=== PATIENT | female | born 1950 | race Caucasian/White ===

== ENCOUNTER 2016-11-22 11:24 | Emergency (ER) | payer MEDICARE, OTHER ==
[~2016-11-22] VITALS: Ht 157.5 cm; Wt 45.9 kg
[2016-11-22 11:29] VITALS: BP 156/94; PULSE 79; TEMP 36.8; O2SAT 97; Ht 157.5 cm; Wt 45.9 kg
[2016-11-22] MEDS ORDERED: ULT/50 PO (11:49)
[2016-11-22] MEDS ORDERED: AMOX500C3 PO (11:49)
--- NOTE | 2016-11-22 11:53 | EMERGENCY ROOM VISIT NOTE ---
ED Visit Note First contact with patient: 11:36 CHIEF COMPLAINT: Toothache HISTORY OF PRESENT ILLNESS: This 66-year-old female patient presented to the emergency department with a progressive toothache for past 2-3 days. The patient believes it is coming from a left lower molar. The pain is now steady and severe and radiates to the face. The patient does not a dentist appointment set up. The patient previously followed with [facility], however she had a bad experience with them and is in the process of establishing with a new dentist. They rate their pain a 7/10 and the ibuprofen and Tylenol they have been taking has not relieved the pain. Denies facial swelling or fever. The patient denies any discharge from the mouth. REVIEW OF SYSTEMS: A 6 system review of systems was completed with positives and pertinent negatives listed in the HPI. ALLERGIES: No known allergies MEDICATIONS: No chronic medications PMH: Otherwise healthy SOCIAL HISTORY: Lives locally PHYSICAL EXAM: Vitals are noted on the nurse's note and reviewed by myself. Vital signs stable. GENERAL: White female, in no acute distress, nondiaphoretic, well-developed well -nourished. Mouth: The left lower first molar #19 tooth is very carious and the gum is swollen and tender around it, without any discharge or signs of an abscess. The remainder of the pharynx and tonsils are without erythema, edema, or exudate. The airway is patent. There is no facial swelling, cervical or submandibular lymphadenopathy. The patient appears uncomfortable and in pain. The patient has overall fair dental hygiene. EARS: External auditory canals clear, tympanic membranes pearly cyr without erythema or effusion bilaterally. HEART: Regular rate and rhythm without murmur gallop or rub LUNG: Clear to auscultation bilateral ED COURSE: Physical exam and history were performed. Nursing notes and EMR were reviewed. The patient appears to have dental pain for the past few days. The patient has never had a previous ER visit to this facility before. Review of the [employer] drug monitoring website shows no narcotic fills in the past year. The patient does not have evidence of Kam's or distinct abscess. She will be given a course of Amoxil and tramadol. She was asked to follow with a dentist as soon as possible for definitive care. She was otherwise invited back to the ER anytime. Current/Historical Medications Scheduled Amoxicillin (Amoxil), 500 MG PO TID Tramadol Hcl (Ultram), 50 MG PO Q8H Allergies Coded Allergies: No Known Allergies (Unverified , 11/22/16) Vital Signs Date Time Temp Pulse Resp B/P Pulse Ox O2 Delivery O2 Flow Rate FiO2 11/22/16 11:29 36.8 79 18 156/94 97 Room Air Departure Information Impression Primary Impression: Pain, dental Dispostion Home / Self-Care Condition GOOD Prescriptions Tramadol Hcl (ULTRAM) 50 Mg Tab 50 MG PO Q8H for 3 Days, #9 TAB Prov: Sarath Mukherjee PA-C 11/22/16 Amoxicillin (AMOXIL) 500 Mg Cap 500 MG PO TID for 10 Days, #30 CAP Prov: Sarath Mukherjee PA-C 11/22/16 Forms HOME CARE DOCUMENTATION FORM, IMPORTANT VISIT INFORMATION Patient Instructions My [facility] Additional Instructions You were seen and evaluated today on an emergency basis only. This is not a substitute for, or an effort to provide, complete comprehensive medical care. It is not possible to recognize and treat all injuries or illnesses in a single emergency department visit. For this reason it is recommended that you followup with a dentist as soon as possible for definitive care. For baseline pain relief you may alternate ibuprofen and acetaminophen every 4 hours for pain control. Take 600 mg ibuprofen (Advil) and then 4 hours later take 1000 mg acetaminophen (Tylenol). Do not take more than 3000 mg acetaminophen in a single day. Take tramadol 50 mg every 8 hours as needed for breakthrough pain. Do not drink or drive while taking tramadol. Take amoxicillin 500 mg 3 times daily for the next 10 days. You are welcome to return to the emergency department anytime with new, worsening, or concerning symptoms.
== END 2016-11-22 11:56 | disposition home or self-care (01) ==
LOC: C.EDB 11:31 → MERGE 11:31 → C.EDD 11:56
DX: K08.89 Other specified disorders of teeth and supporting structures (principal)

== ENCOUNTER 2017-12-11 17:24 | Emergency (ER) | payer OTHER ==
[~2017-12-11] VITALS: Ht 157.5 cm; Wt 46.9 kg
[2017-12-11 17:44] VITALS: BP 157/88; PULSE 76; TEMP 36.7; O2SAT 98; Ht 157.5 cm; Wt 46.9 kg
[2017-12-11] MEDS ORDERED: NEOM1SUS21 OP (18:05)
--- NOTE | 2017-12-11 20:49 | EMERGENCY ROOM VISIT NOTE ---
ED Visit Note First contact with patient: 17:55 Chief Complaint: Left ear pain. History of Present Illness: Ms. Freitas is a 67-year-old white female who ambulates into the ED complaining of left ear pain. Patient reports she had an acute onset of left ear pain that started just over 24 hours ago. Since that time the pain has been intermittent. She describes her pain as a sharp sensation in the left ear canal and over the tragus. She rates her discomfort 6/10. The pain is nonradiating. The pain worsens with depression of the tragus and intermittently chewing food. She has not identified any alleviating factors related to the pain. She has not taken any medication for pain prior to arrival at the hospital. She does report she routinely cleans her ear canals with Q-tips. She denies fevers, chills, sweats, skin eruptions, skin color changes, headache , dizziness, lightheadedness, ear drainage, hearing changes, tinnitus, upper respiratory tract symptoms, throat pain, difficulty speaking, difficulty swallowing, neck pain/stiffness, decreased appetite. Review of Systems: As noted above in history of present illness. 8 body systems were reviewed and found to be negative as noted above. Past Medical History: Patient denies. Current Medications: Patient denies. Allergies to Medications: Patient denies. Social History: Patient is not employed; she feels safe in her home environment ; she admits to tobacco use and denies alcohol use. Physical Examination: Vital Signs: Date Time Temp Pulse Resp B/P (MAP) Pulse Ox O2 Delivery O2 Flow Rate FiO2 12/11/17 17:44 36.7 76 18 157/88 98 Room Air GENERAL: 67-year-old female in mild distress due to pain, nontoxic-appearing, afebrile and hemodynamically stable. NEUROLOGICAL: Awake, alert and oriented to person, place and time. Answering questions appropriately and following commands. Normal gait. Good hand eye coordination. SKIN: Warm, dry and pink. No soft tissue eruptions or trauma noted. HEENT: Atraumatic and normocephalic. No erythema or tenderness over the frontal or maxillary sinuses. Minimal tenderness over the external ear. Moderate tenderness with tragal depression. Left external canal is moderately erythematous and minimally edematous. The tympanic membrane was not erythematous or bulging. Sclera white and conjunctiva pink without drainage. No drainage from naris. Oral cavity moist and pink. Uvula was midline and no abscesses were seen. Pharynx is nonerythematous or edematous. No intraoral trauma. No obvious signs of dental infection, trauma or injury. Speech normal. No clicking or popping over the TMJs. No preauricular or postauricular lymphadenopathy. No erythema or tenderness over the mastoid processes. Trachea midline. No jugular venous distention. BACK: No tenderness over the bony spine. Full range of motion of the cervical spine. ED Course: Patient is assessed as noted above. Patient's medication list was reviewed. Patient was offered pain medication and refused. Patient was educated about today's findings and instructed on her treatment plan ; she verbalized understanding and agreement with this plan. Clinical Impression: Left otitis externa. Disposition: Patient discharged home in stable condition; prior to departure she was reassessed and subjectively report she was feeling the same. Plan: Patient was encouraged alternate ibuprofen and acetaminophen every 3 hours as needed for pain. Patient was prescribed Cortisporin otic suspension and encouraged use 4 drops 4 times a day for 5-7 days. Patient was encouraged to follow-up with PCP for recheck in 3-4 days. Patient was encouraged return the ED for worsening/uncontrolled pain, fevers, external ear redness/swelling, ear drainage, hearing changes, headaches, vomiting or any new/concerning symptoms.
== END 2017-12-11 18:31 | disposition home or self-care (01) ==
LOC: C.EDB 17:25 → C.EDD 18:31
DX: H60.92 Unspecified otitis externa, left ear (principal)

== ENCOUNTER 2024-06-30 14:52 | Inpatient (IN) ==
--- NOTE | 2024-06-30 15:40 | History & Physical Report ---
Date of Service June 30, 2024 Assessment & Plan (1) Closed left hip fracture: Plan: Left hip fracture: XR from [facility] Reviewed. Impression: Acute LEFT subcapital/left femoral neck fracture, best visualized on the crosstable view. Mechanical fall. No syncope or weakness that led to her fall She is not on blood thinners or antiplatelet agents at baseline Cesar ordered CBC, CMP, baseline EKG ordered No chest pain or preceding anginal symptoms. At least 4 METS of activity at baseline without chest pain chest pressure DoRCRI 0 points class I risk, no modifiable risk factors prior to surgical intervention. May proceed to surgery as low risk Images from the [facility] have been pushed to PACS for orthopedic review Suspect leukocytosis of reactive, she has had no infectious symptoms recently. Electrolytes are unremarkable, potassium is 3.4 potassium x 1 given for optimization. 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 Hospitalist service was contacted via transfer center for request of transfer to [facility] as patient follows with [facility] PCP. Per report from transferring physician patient stable for [facility], had a mechanical fall which led to her fracture, and was hemodynamically stable with last vitals 165/86/respiratory rate 14/BP 90s. No antiplatelet or anticoagulants. Patient was excepted to medical surgical level of care for transfer with orthopedics on- call for anticipated surgical repair 07/01. Alejandrina is seen at the bedside. REports her sisters brought her to lunch in [place] and the booths were on a slight elevation which she got in ok, but coming out of the [place] forgot there was a drop and she fell and hit her LEFT side. Did not hit her head. Did not lose conciousness. Was able to walk to the hospital but had continued severe pain on weight bearing and went to the [facility]. Has a history of TMJ which is now doing well with no recent issues. No OMFS infectious No history of heart problems No history of lung disease No history of kidney disease Did have slightly elevated cholesterol for which she did transiently take rosuvastatin but didn't feel well on this and stopped taking. Was previously on gabapentin for her TMJ but stopped because it made her feel poorly and symptoms improved regardless No history of diabetes No chest pain or chest pressure walking around the block and going up stairs. No sweats. Medical History: Reviewed Medications: Reviewed Surgical History: Reviewed Family history: Reviewed Allergies: Reviewed Social History: Former smoker, quit in April. No ETOH use. Code Status: Full Allergies Allergy/AdvReac Type Severity Reaction Status Date / Time amoxicillin AdvReac Nausea Verified 01/20/24 12:45 clavulanate Allergy Intermediate Uncoded 01/20/24 12:45 Home Medications Medication Instructions Recorded Confirmed Type rosuvastatin 10 mg tablet 10 mg PO DAILY #90 tabs 01/20/24 01/20/24 Rx Past Med/Surg History Problem List Closed left hip fracture Carotid atherosclerosis Hyperlipidemia TMJ arthropathy Encounter for pre-operative examination Tobacco dependence Ulcer, oral mucosa traumatic Oral fistula Impacted teeth with abnormal position Gum hyperplasia Sinus pressure Left facial pain Infection of oral mucosa reason for upcoming procedure, treated with abx currently Tobacco dependence Surgical History Hx of oral surgery (01/03/23) p Debridement of the Infected Soft and Hard Tissue, Removal of Calvin Tooth #16 - Osmel Jones DMD s Swing and Mucosal and Buccal Fat Flap to Close the Large Posterior Defect(Not Applicable) - Osmel Jones DMD History of bilateral tubal ligation H/O tooth extraction 23 teeth extractions (2020) Family History Grandfather Prostate cancer Sister Breast cancer Other No family history of adverse response to anesthesia No significant family history Denies family history of Ovarian cancer Myocardial infarction Colorectal cancer Social History Smoking Status: Former smoker Tobacco Type: Cigars Cigarettes Per Day: 5; Smoking End Date: 04/2024; Second Hand Exposure: Yes; Do You Dip or Chew Tobacco: No; Hx Alcohol Use: No Hx Substance Use: No Preferred Language: Yi Communication Ability: Effective Visual Impairment: No Limitations Hearing Ability: Normal Nightclub Manager Required: No Beliefs That Will Affect Care: None marital status: / Current Living Situation: Alone current occupational status: retired How many Children do You have: 3 Other Information That Helps Us Care for You: No Feels Safe at Home: Yes Safety Concerns: Feels Safe At This Time Childhood Exposure to Second-Hand Smoke: Yes caffeine: Yes during the past year weight has: decreased > 10 lbs Dental Care, Regularly: No Physical Activity Frequency: Daily Seatbelt Use: always Sunscreen Use: Yes Assistive Devices: Denture - Upper and Denture - Lower Physical Exam Physical Exam: General: A&Ox3. NAD. Cooperative. HEENT: Atraumatic, normocephalic. Pulm: CTAB A&P. -wheezes, -rales, -rhonchi. Symmetrical chest rise. No increased work of breathing. No respiratory distress. Cardiac: RRR, -mrg. Radial pulses intact and symmetrical. Ext: PT pulse and DP pulses intact and palpable bilaterally. Cap refill intact bilat. Sensation to soft touch intact in feet bilat. Ankle dorsi/plantarflexion intact bilat. PG Care Time/CCT Total # of Minutes Spent Total Time Spent with Patient: Total time spent is greater than 50% in coordination of care (as documented) at patient's floor/unit and/or counseling patient: Coding Level of Care Code 75095 INT INP/OBS CARE MIN Diagnoses Closed left hip fracture S72.002A Hyperlipidemia E78.5 TMJ arthropathy M26.659
[2024-06-30] MEDS ORDERED: NALOXONE HCL 0.4 MG/1 ML VIAL/CARP IV PRN (17:13)
[2024-06-30] MEDS ORDERED: MoRPHine SULFATE 4 MG/ML 1 ML CARP\\VIAL IV PRN (17:13)
[2024-06-30] MEDS ORDERED: bisacodyL 10 MG SUPP PR PRN (17:13)
[2024-06-30] MEDS ORDERED: MoRPHine SULFATE 2 MG/ML CARP IV PRN (17:13)
[2024-06-30] MEDS ORDERED: MAGNESIUM HYDROXIDE SUSP 30 ML UDC PO PRN (17:13)
[2024-06-30] MEDS ORDERED: ONDANSETRON INJ 2 MG/ML 2 ML VIAL IV PRN (17:15)
[2024-06-30] MEDS ORDERED: Patient's HEIGHT &/or WEIGHT Needed SCH (17:30)
--- NOTE | 2024-06-30 17:50 | Orthopedic Consultation ---
Date of Consultation June 30, 2024 Assessment & Plan (1) Closed left hip fracture: IMPRESSION: Left femoral neck fracture, closed PLAN: Patient has been directly admitted by Hospitalist service. Surgery tomorrow AM, ORIF left hip fracture, if medically cleared NPO after midnight Ancef is medical authorization specialist to OR NWB LLE, Bed rest tonight Tylenol for pain control Will place PT, case management and WB status following tomorrow's procedure Continue care per primary service. Present on Admission?: Yes Supervising Physician Co-Signing Physician Notes I, Dr. Aguilar, saw and examined the patient. I discussed the management with my PA. I reviewed my PAs note and agree with the documented findings and attest to completing the substantive portion of medical decision making and plan of care I developed. The patient is a 74 year old female who sustained a left hip fracture following a ground level fall. Their treatment options of conservative versus surgical intervention were discussed. Since the patient was an ambulatory prior to their injury and to avoid the risks of bed sores, pulmonary complications, and to give them the best chance for ambulation, I recommended surgery. The patient and their family understands the risks of surgery, which include but are not limited to: bleeding, infection, re-operation, damage to nerves and arteries, continued pain, failure of the hardware, mal-union, non-union, DVT, and . In addition the patient is aware of the 20-30% morbidity associated with hip fracture for up to 1 year following a hip fracture. The patient understands all of these instructions and explanations, all of their questions have been satisfactorily addressed. The patient has elected to proceed with surgery and the informed consent was signed. 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 Hospitalist service was contacted via transfer center for request of transfer to [facility] as patient follows with [facility] PCP. Per report from transferring physician patient stable for [facility], had a mechanical fall which led to her fracture, and was hemodynamically stable with last vitals 165/86/respiratory rate 14/BP 90s. No antiplatelet or anticoagulants. Patient was excepted to medical surgical level of care for transfer with orthopedics on- call for anticipated surgical repair 07/01. Alejandrina is seen at the bedside. Reports her sisters brought her to lunch in [place] and the booths were on a slight elevation which she got in ok, but coming out of the [place] forgot there was a drop and she fell and hit her LEFT side. Did not hit her head. Did not lose consciousness. Was able to walk after but had continued severe pain on weight bearing and went to the [facility]. Allergies Allergy/AdvReac Type Severity Reaction Status Date / Time amoxicillin AdvReac Nausea Verified 01/20/24 12:45 clavulanate Allergy Intermediate Uncoded 01/20/24 12:45 Home Medications Medication Instructions Recorded Confirmed Type rosuvastatin 10 mg tablet 10 mg PO DAILY #90 tabs 01/20/24 01/20/24 Rx Patient History Surgical History Hx of oral surgery (01/03/23) p Debridement of the Infected Soft and Hard Tissue, Removal of Sabine Tooth #16 - Osmel Jones DMD s Swing and Mucosal and Buccal Fat Flap to Close the Large Posterior Defect(Not Applicable) - Osmel Jones DMD History of bilateral tubal ligation H/O tooth extraction 23 teeth extractions (2020) Family History Grandfather Prostate cancer Sister Breast cancer Other No family history of adverse response to anesthesia No significant family history Denies family history of Ovarian cancer Myocardial infarction Colorectal cancer Social History Smoking Status: Former smoker Tobacco Type: Cigars Cigarettes Per Day: 5; Smoking End Date: 04/2024; Second Hand Exposure: Yes; Do You Dip or Chew Tobacco: No; Hx Alcohol Use: No Hx Substance Use: No Preferred Language: Slovak Communication Ability: Effective Visual Impairment: No Limitations Hearing Ability: Normal Men'S Garment Fitter Required: No Beliefs That Will Affect Care: None marital status: / Current Living Situation: Alone current occupational status: retired How many Children do You have: 3 Other Information That Helps Us Care for You: No Feels Safe at Home: Yes Safety Concerns: Feels Safe At This Time Childhood Exposure to Second-Hand Smoke: Yes caffeine: Yes during the past year weight has: decreased > 10 lbs Dental Care, Regularly: No Physical Activity Frequency: Daily Seatbelt Use: always Sunscreen Use: Yes Assistive Devices: Denture - Upper and Denture - Lower Review of Systems Review of Systems: All systems reviewed & are unremarkable except as noted in Subjective Physical Exam Physical Exam: Left hip: Patient's left lower extremity shortened and externally rotated. She experiences exquisite tenderness to palpation in the groin and over the greater trochanter. She is unable to perform an active straight leg raise test. She is unable to flex at her knee. She is able to actively dorsi and plantarflex her foot. She is able to detect light and is sensation to touch over the pads of all digits. Her peripheral pulses were 2+. She was neurovascularly intact. Results & Data Laboratory Results 06/30/24 Range/Units 18:32 WBC 14.64 H (4.8-10.8) K/ul RBC 4.41 (4.20-5.40) M/uL Hgb 13.4 (12.0-16.0) g/dl Hct 39.6 (37.0-47.0) % MCV 89.8 (80.0-100.0) fL MCH 30.4 (25.0-34.0) pg MCHC 33.8 (32.0-36.0) g/dL RDW Std Deviation 43.4 (36.4-46.3) fL RDW Coeff of Horacio 13.1 (11.5-14.5) % Plt Count 333 (130-400) K/uL MPV 10.8 (9.4-12.4) fL Immature Gran % (Auto) 0.4 % Neut % (Auto) 84.0 % Lymph % (Auto) 7.6 % Hodgeman % (Auto) 7.2 % Eos % (Auto) 0.5 % Baso % (Auto) 0.3 % Neut # (Auto) 12.30 H (1.40-6.50) K/uL Lymph # (Auto) 1.11 L (1.20-3.40) K/uL Hodgeman # (Auto) 1.05 H (0.11-0.59) K/uL Eos # (Auto) 0.08 (0.00-0.50) K/uL Baso # (Auto) 0.04 (0.00-0.20) K/uL Immature Gran # (Auto) 0.06 (0.01-0.20) K/uL PT 9.9 (9.0-12.0) Seconds INR 0.9 (0.9-1.1) APTT 25 (21-31) Seconds PTT Ratio 0.9 Sodium 140 (136-145) mmol/L Potassium 3.4 L (3.5-5.1) mmol/L Chloride 106 (98-107) mmol/L Carbon Dioxide 28 (21-32) mmol/L Anion Gap 6 (3-11) BUN 21 (6-23) mg/dl Creatinine 0.60 (0.6-1.2) mg/dl Est Cr Clr Drug Dosing 45.4 ml/min eGFR 93.55 BUN/Creatinine Ratio 35.0 H (10-20) Glucose 166 H (70-99(Fasting)) mg/dl Calcium 8.8 (8.6-10.3) mg/dl Magnesium 2.0 (1.7-2.4) mg/dl Total Bilirubin 0.3 (0.2-1.0) mg/dl AST 23 (13-39) U/L ALT 17 (7-52) U/L Alkaline Phosphatase 99 (34-104) U/L Total Protein 6.9 (6.0-8.3) gm/dl Albumin 4.0 (3.4-5.0) gm/dl Globulin 2.9 (2.5-4.0) gm/dl Albumin/Globulin Ratio 1.4 (0.9-2) Diagnostic Findings AP pelvis, AP & lateral left hip shows a slight valgus impacted femoral neck fracture.
[2024-06-30 19:03] LABS: Basophils # (auto) 0.04 K/uL (0.00-0.20); Basophils % (auto) 0.3 %; Eosinophils # (auto) 0.08 K/uL (0.00-0.50); Eosinophils % (auto) 0.5 %; Hematocrit (blood only) 39.6 % (37.0-47.0); Hemoglobin 13.4 g/dl (12.0-16.0); Immature Granulocytes # (auto) 0.06 K/uL (0.01-0.20); Immature Granulocytes % (auto) 0.4 %; Lymphocytes # (auto) 1.11 K/uL (1.20-3.40); Lymphocytes % (auto) 7.6 %; Mean Corpuscular Hemoglobin 30.4 pg (25.0-34.0); Mean Corpuscular Hgb Conc 33.8 g/dL (32.0-36.0); Mean Corpuscular Volume 89.8 fL (80.0-100.0); Mean Platelet Volume 10.8 fL (9.4-12.4); Monocytes # (auto) 1.05 K/uL (0.11-0.59); Monocytes % (auto) 7.2 %; Platelet Count 333 K/uL (130-400); RDW Coefficient of Variation 13.1 % (11.5-14.5); RDW Standard Deviation 43.4 fL (36.4-46.3); Red Blood Count 4.41 M/uL (4.20-5.40); White Blood Count 14.64 K/ul (4.8-10.8)
[2024-06-30 19:16] LABS: Albumin Globulin Ratio 1.4 (0.9-2); Bilirubin,Total 0.3 mg/dl (0.2-1.0); Calcium 8.8 mg/dl (8.6-10.3); Creatinine Clr Calc Pharmacy 45.4 ml/min; Globulin 2.9 gm/dl (2.5-4.0); Potassium 3.4 mmol/L (3.5-5.1); Total Protein 6.9 gm/dl (6.0-8.3)
[2024-06-30 19:27] LABS: INR 0.9 (0.9-1.1); Partial Thromboplastin Ratio 0.9; Partial Thromboplastin Time 25 Seconds (21-31); Prothrombin Time 9.9 Seconds (9.0-12.0)
[2024-06-30] MEDS: ACETAMINOPHEN 325 MG TAB PO PRN (20:08)
--- NOTE | 2024-06-30 20:13 | Urology Consultation ---
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 Catheter placement per protocol was unable to be obtained by nursing at outside hospital or [facility]. Urology was consulted. Procedure: Consent was obtained verbally as this was deemed emergent. Patient was prepped and draped in a sterile fashion. I attempted to advance a 16 Thai Cesar but immediately noted that she had urethral stenosis. Using a 5 Thai open-ended catheter, I was able to gain access into the bladder and advanced a sensor wire through the catheter and remove the catheter. I attempted to advance a 20 Thai wampanoag tip catheter over the wire but met resistance. I then attempted to advance a 14 Thai wampanoag tip catheter over the wire but met resistance. At this point I opted to dilate with Florin dilators. In order to minimize discomfort for the patient, I elected to dilate as minimally as possible and dilated sequentially with a 14 and 16 Thai dilator. I then was able to advance the 14 Thai catheter over the wire into her bladder. Wire was removed. Balloon was inflated with 10 cc of sterile water. Clear yellow urine was draining. This concluded the end of the procedure. Recommendations: Maintain catheter for at least 72 hours due to dilation for urethral stenosis. Catheter removal per primary team after that depending on mobility and protocol. Suspect patient will have no issues voiding once catheter is removed. Recommend one-time dose of Bactrim or Keflex for procedure Urology to sign off Message sent to schedule outpatient follow-up for urology clinic History of Present Illness Attending Physician: Dev Rivera MD History of Present Illness 74-year-old female transferred from [facility] due to a left hip fracture. Per reports, they attempted to place a catheter per protocol at the outside hospital but were unsuccessful and then several nurses tried here and were unsuccessful. Urology was consulted for catheter placement. Patient denies any previous voiding symptoms or urologic history. She is still voiding spontaneously. PVR was 180 cc. Allergies Allergy/AdvReac Type Severity Reaction Status Date / Time amoxicillin AdvReac Nausea Verified 01/20/24 12:45 clavulanate Allergy Intermediate Uncoded 01/20/24 12:45 Home Medications Medication Instructions Recorded Confirmed Type rosuvastatin 10 mg tablet 10 mg PO DAILY #90 tabs 01/20/24 01/20/24 Rx Patient History Surgical History Hx of oral surgery (01/03/23) p Debridement of the Infected Soft and Hard Tissue, Removal of [place] Tooth #16 - Osmel Jones DMD s Swing and Mucosal and Buccal Fat Flap to Close the Large Posterior Defect(Not Applicable) - Osmel Jones DMD History of bilateral tubal ligation H/O tooth extraction 23 teeth extractions (2020) Family History Grandfather Prostate cancer Sister Breast cancer Other No family history of adverse response to anesthesia No significant family history Denies family history of Ovarian cancer Myocardial infarction Colorectal cancer Social History Smoking Status: Former smoker Tobacco Type: Cigars Cigarettes Per Day: 5; Smoking End Date: 04/2024; Second Hand Exposure: Yes; Do You Dip or Chew Tobacco: No; Hx Alcohol Use: No Hx Substance Use: No Preferred Language: Belarusian Communication Ability: Effective Visual Impairment: No Limitations Hearing Ability: Normal 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 Beliefs That Will Affect Care: None marital status: / Current Living Situation: Alone current occupational status: retired How many Children do You have: 3 Other Information That Helps Us Care for You: No Feels Safe at Home: Yes Safety Concerns: Feels Safe At This Time Childhood Exposure to Second-Hand Smoke: Yes caffeine: Yes during the past year weight has: decreased > 10 lbs Dental Care, Regularly: No Physical Activity Frequency: Daily Seatbelt Use: always Sunscreen Use: Yes Assistive Devices: Denture - Upper and Denture - Lower Physical Exam Physical Exam: General: Alert and oriented, no acute distress HEENT: Normocephalic, mucous membranes moist Pulmonary: Nonlabored respirations Abdomen: Nondistended : Normal external female genitalia. 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
[2024-06-30] MEDS: ceFAZolin 1000MG 1,000 MG/7.5 ML SYR IV STA (20:51)
[2024-06-30] MEDS: POTASSIUM CHLORIDE CRTAB 20 MEQ TABCR PO STA (20:51)
--- NOTE | 2024-07-01 06:37 | Orthopedic Progress Note ---
Date of Service July 01, 2024 Assessment & Plan (1) Closed left hip fracture: Plan: IMPRESSION: Left femoral neck fracture, closed PLAN: The patient is a 74 year old female who sustained a left hip fracture following a ground level fall. Their treatment options of conservative versus surgical intervention were discussed. Since the patient was an ambulatory prior to their injury and to avoid the risks of bed sores, pulmonary complications, and to give them the best chance for ambulation, I recommended surgery. The patient and their family understands the risks of surgery, which include but are not limited to: bleeding, infection, re-operation, damage to nerves and arteries, continued pain, failure of the hardware, mal-union, non-union, DVT, and . In addition the patient is aware of the 20-30% morbidity associated with hip fracture for up to 1 year following a hip fracture. The patient understands all of these instructions and explanations, all of their questions have been satisfactorily addressed. The patient has elected to proceed with surgery and the informed consent was signed. Patient has been directly admitted by Hospitalist service. Surgery today, ORIF left hip fracture Patient has been NPO after midnight Ancef is ion implant machine operator to OR NWB LLE, Bed rest tonight Tylenol for pain control Continue care per primary service. Admission and Anticipated Discharge Date Admission Date: June 30, 2024 Subjective L hip pain Physical Exam Physical Exam: LLE: Neurovascularly intact. Tender to palpation hip/groin. Calf soft & non- tender Results & Data Vital Signs (Past 12 Hours) Vital Signs Temp Pulse Resp BP Pulse Ox O2 Del Method 06/30/24 21:07 37.0 C 80 16 150/85 H 97 Room Air Laboratory Results 07/01/24 06/30/24 Range/Units 06:00 18:32 WBC Pending 14.64 H (4.8-10.8) K/ul RBC Pending 4.41 (4.20-5.40) M/uL Hgb Pending 13.4 (12.0-16.0) g/dl Hct Pending 39.6 (37.0-47.0) % MCV Pending 89.8 (80.0-100.0) fL MCH Pending 30.4 (25.0-34.0) pg MCHC Pending 33.8 (32.0-36.0) g/dL RDW Std Deviation 43.4 (36.4-46.3) fL RDW Coeff of Horacio 13.1 (11.5-14.5) % Plt Count Pending 333 (130-400) K/uL MPV 10.8 (9.4-12.4) fL Immature Gran % (Auto) 0.4 % Neut % (Auto) 84.0 % Lymph % (Auto) 7.6 % Edgar % (Auto) 7.2 % Eos % (Auto) 0.5 % Baso % (Auto) 0.3 % Neut # (Auto) 12.30 H (1.40-6.50) K/uL Lymph # (Auto) 1.11 L (1.20-3.40) K/uL Edgar # (Auto) 1.05 H (0.11-0.59) K/uL Eos # (Auto) 0.08 (0.00-0.50) K/uL Baso # (Auto) 0.04 (0.00-0.20) K/uL Immature Gran # (Auto) 0.06 (0.01-0.20) K/uL PT Pending 9.9 (9.0-12.0) Seconds INR Pending 0.9 (0.9-1.1) APTT 25 (21-31) Seconds PTT Ratio 0.9 Sodium Pending 140 (136-145) mmol/L Potassium Pending 3.4 L (3.5-5.1) mmol/L Chloride Pending 106 (98-107) mmol/L Carbon Dioxide Pending 28 (21-32) mmol/L Anion Gap Pending 6 (3-11) BUN Pending 21 (6-23) mg/dl Creatinine Pending 0.60 (0.6-1.2) mg/dl Est Cr Clr Drug Dosing Pending 45.4 ml/min eGFR Pending 93.55 BUN/Creatinine Ratio Pending 35.0 H (10-20) Glucose Pending 166 H (70-99(Fasting)) mg/dl Calcium Pending 8.8 (8.6-10.3) mg/dl Magnesium Pending 2.0 (1.7-2.4) mg/dl Total Bilirubin 0.3 (0.2-1.0) mg/dl AST 23 (13-39) U/L ALT 17 (7-52) U/L Alkaline Phosphatase 99 (34-104) U/L Total Protein 6.9 (6.0-8.3) gm/dl Albumin 4.0 (3.4-5.0) gm/dl Globulin 2.9 (2.5-4.0) gm/dl Albumin/Globulin Ratio 1.4 (0.9-2) Diagnostic Findings AP Pelvis, AP& lateral left hip showed slight valgus impacted femoral neck fracture.
[2024-07-01] MEDS ORDERED: MIDAZOLAM HCL 1 MG/ML 2ML VIAL ONE (06:55)
[2024-07-01] MEDS ORDERED: fentaNYL citrate PF 100 MCG/2 ML VIAL ONE (06:55)
[2024-07-01 06:57] LABS: Basophils # (auto) 0.05 K/uL (0.00-0.20); Basophils % (auto) 0.4 %; Eosinophils # (auto) 0.25 K/uL (0.00-0.50); Eosinophils % (auto) 2.2 %; Hematocrit (blood only) 40.4 % (37.0-47.0); Hemoglobin 13.7 g/dl (12.0-16.0); Immature Granulocytes # (auto) 0.04 K/uL (0.01-0.20); Immature Granulocytes % (auto) 0.3 %; Lymphocytes # (auto) 1.44 K/uL (1.20-3.40); Lymphocytes % (auto) 12.6 %; Mean Corpuscular Hgb Conc 33.9 g/dL (32.0-36.0); Mean Corpuscular Volume 88.4 fL (80.0-100.0); Mean Platelet Volume 10.7 fL (9.4-12.4); Monocytes # (auto) 0.81 K/uL (0.11-0.59); Monocytes % (auto) 7.1 %; Neutrophils # (auto) 8.88 K/uL (1.40-6.50); Neutrophils % (auto) 77.4 %; Platelet Count 335 K/uL (130-400); RDW Coefficient of Variation 13.2 % (11.5-14.5); RDW Standard Deviation 42.7 fL (36.4-46.3); Red Blood Count 4.57 M/uL (4.20-5.40); White Blood Count 11.47 K/ul (4.8-10.8)
[2024-07-01 06:58] LABS: Prothrombin Time 10.4 Seconds (9.0-12.0)
[2024-07-01] MEDS: LACTATED RINGER'S 1,000 ML IV SCH (07:09)
[2024-07-01] MEDS ORDERED: PROPOFOL IV EMULSION 10 MG/ML 20 ML VIAL IV ONE (07:15)
[2024-07-01] MEDS ORDERED: ONDANSETRON INJ 2 MG/ML 2 ML VIAL ONE (07:15)
[2024-07-01] MEDS ORDERED: LIDOCAINE 2% 2 ML VIAL/AMP(20MG/ML) INFIL ONE (07:15)
[2024-07-01] MEDS ORDERED: DEXAMETHASONE SOD INJ 4 MG/ML VIAL ONE (07:15)
[2024-07-01] MEDS ORDERED: ROCURONIUM BROMIDE 10 MG/ML 5 ML VIAL IV ONE (07:15)
[2024-07-01] MEDS: TRANEXAMIC ACID / 0.7% NACL 1,000 MG/100 ML BAG IV SCH (07:22)
[2024-07-01] MEDS: ceFAZolin 2000MG 2,000 MG/15 ML SYR IV SCH (07:28)
[2024-07-01] MEDS ORDERED: PHENYLEPHRINE 100MCG/ML 10ML SYR IV ONE (07:55)
[2024-07-01] MEDS ORDERED: PHENYLEPHRINE HCL 10 MG/ML VIAL ONE (07:55)
[2024-07-01 08:43] LABS: BUN Creatinine Ratio 27.3 (10-20); Calcium 9.1 mg/dl (8.6-10.3); Creatinine Clr Calc Pharmacy 49.5 ml/min; Potassium 4.3 mmol/L (3.5-5.1)
[2024-07-01] MEDS ORDERED: SUGAMMADEX SODIUM 200 MG/2 ML VIAL IV ONE (08:43)
[2024-07-01] MEDS: LIDOCAINE 1% LOCAL 20 ML VIAL ONE (08:49)
[2024-07-01] MEDS: BUPIVACAINE 0.5 % 5 MG/1 ML MPF 30ML VIAL ONE (08:49)
[2024-07-01] MEDS: EpINEphrine HCL INJ 1 MG/ML 1ML SYRINGE IR ONE (08:49)
--- NOTE | 2024-07-01 09:07 | Post Operative Brief Note ---
Immediate Post Op Note Date of Surgery July 01, 2024 Pre & Post Diagnosis Operation Date: 07/01/24 07:30 Pre-Op Diagnosis: Closed left hip fracture Post-Op Diagnosis: Closed left hip fracture I identified the patient and participated in the time-out.: Yes Procedure Operation Date: 07/01/24 07:30 Actual Procedures p ORIF Left hip fracture (Left) - Ivan Aguilar MD Surgeon Ivan Aguilar MD Brake Lining Curer Annie Perkins PA-C Estimated Blood Loss 10 Findings Consistent with Post-Op Diagnosis Fluids 250 cc Drains Cesar Catheter Anesthesia Type General Complications none
--- NOTE | 2024-07-01 09:08 | Operative Report ---
Post Operative Report Pre & Post Diagnosis Operation Date: 07/01/24 07:30 Pre-Op Diagnosis: Closed left hip fracture Post-Op Diagnosis: Closed left hip fracture I identified the patient and participated in the time-out.: Yes Procedure Operation Date: 07/01/24 07:30 Actual Procedures p ORIF Left hip fracture (Left) - Ivan Aguilar MD Surgeon Ivan Aguilar MD Electrical Controls Engineer Annie Perkins PA-C Estimated Blood Loss 10 Findings See Below Slight valgus impacted left femoral neck hip fracture Fluids 250 cc Specimens n/a Anesthesia Type General Complications none Indications The patient is a 74 year old female who sustained a left hip fracture following a ground level fall. Their treatment options of conservative versus surgical intervention were discussed. Since the patient was an ambulatory prior to their injury and to avoid the risks of bed sores, pulmonary complications, and to give them the best chance for ambulation, I recommended surgery. The patient and their family understands the risks of surgery, which include but are not limited to: bleeding, infection, re-operation, damage to nerves and arteries, continued pain, failure of the hardware, mal-union, non-union, DVT, and . In addition the patient is aware of the 20-30% morbidity associated with hip fracture for up to 1 year following a hip fracture. The patient understands all of these instructions and explanations, all of their questions have been satisfactorily addressed. The patient has elected to proceed with surgery and the informed consent was signed. Description of Procedure , MAURICE is assisting with positioning, retraction, and closure due to fellow not available. IMPLANTS: 1) FNS Plate 1 hole (SYNTHES). 2) [place] FNS 80 mm (SYNTHES) 3) Anti-rotation screw 80 mm (SYNTHES) 4) 5.0 Ti Locking screw 40 mm (SYNTHES) Procedure The patient was taken to the Operating Room and placed in the supine position on the fracture table after general anesthesia was administered. A mult idisciplinary time-out was performed identifying my initials on the left lower limb as the correct and operative limb. Prior to the incision being made, 2 g intravenous Ancef was given. Fluoroscopy was brought in to ensure adequate x- rays images could be obtained. No reduction was necessary as the femoral neck fracture was non-displaced and remained in its alignment with placement of the patient on the fracture table. Once this was confirmed with Fluro, the left lower extremity was prepped in the standard fashion. The trochanter was marked as was the planned incision. The incision was in jected with a 50:50 mixture of 1% Lidocaine with epinephrine and 0.5% Marcaine plain for a total of 15cc. The planned incision was carried down through the Tensor Fascia Alethea to expose the greater trochanter and the starting position. Using Fluro a starting guide wire was placed proximal to the lesser trochanter and centered along the femoral neck. This was measured and the cannulated drill was used in the standard fashion. The [place] and plate were then inserted over the guide wire in the standard fashion. The anti-rotation screw was prepped with the aiming guide using the appropriate drill in the standard fashion followed by placement of the anti-rotation screw. Then using the aiming guide the distal locking screw was prepped with the aiming guide using the appropriate drill in the standard fashion followed by placement of the locking screw. Final x-rays were obtained showing anatomic alignment with fracture and hardware in good position, TAD less than 25 mm. The wounds were copiously irrigated. The Tensor Fascia Alethea was closed with 0 Vicryl. The subcutaneous tissue was closed with 3-0 Vicryl. The skin was closed with ZipLine and shield. The incision was covered with 4x4s, Tegederm. The patient was transfer to their hospital bed and taken to the PACU in stable condition. The sponge and needle counts were correct. Post-op Instructions: The patient was re-admitted to Hospitalist service. The patient will be WBAT with a walker. The patient will be seen by PT/OT. Their labs will be checked in the am. DVT prophylaxis will include 81 mg ASA BID for 6 weeks, Teds for 3 weeks, SCDs while in the hospital. I attest to the content of the Intraoperative Record and any orders documented therein. Any exceptions are noted below.
--- NOTE | 2024-07-01 09:09 | Fluoroscopy Report ---
FL hip LT 2-3V CLINICAL HISTORY: LT TROCHNAILacute fracture COMPARISON STUDY: 06/30/2020 FLUOROSCOPY TIME: 42.7 seconds FLUOROSCOPY IMAGES: 2 EXPOSURE DOSE: 4.79 mGy FINDINGS: Status post placement of a femoral neck dynamic screw fixating the acute left femoral fract ure. Satisfactory alignment. No dislocation. IMPRESSION: Fluoroscopic assistance as above. ACT 112: Negative or not required by law. Electronically signed by: Rashid Tadeo M.D. 07/01/2024 9:07 AM
--- NOTE | 2024-07-01 09:22 | Operative Report ---
Post Operative Report Pre & Post Diagnosis Operation Date: 07/01/24 07:30 Pre-Op Diagnosis: Closed left hip fracture Post-Op Diagnosis: Closed left hip fracture I identified the patient and participated in the time-out.: Yes Procedure Operation Date: 07/01/24 07:30 Actual Procedures p Open Reduction Internal Fixation Left Hip Fracture(Left) - Ivan Aguilar MD Surgeon Ivan Aguilar MD [place] Former Machine Operator Annie Perkins PA-C Estimated Blood Loss 10 Findings Consistent with Post-Op Diagnosis Specimens None Description of Procedure Please refer to Dr. Aguilar's procedure note for full details. I was present during the entire case. I assisted with positioning, prepping, draping, retraction, incision closure, and dressing application. I attest to the content of the Intraoperative Record and any orders documented therein. Any exceptions are noted below.
--- NOTE | 2024-07-01 09:38 | Anesthesiology Progress Note ---
Date of Service July 01, 2024 Anesthesia Post Procedure Vital Signs Vital Signs: Temp Pulse Pulse Resp BP Pulse Ox O2 Del Method 07/01/24 09:30 75 16 187/97 H 100 Oxymask 07/01/24 09:20 74 17 180/94 H 100 Oxymask 07/01/24 09:18 36.3 C L 71 22 169/93 H 100 Oxymask 07/01/24 06:51 37 C 87 16 178/89 H 99 Room Air 06/30/24 21:07 37.0 C 80 16 150/85 H 97 Room Air 06/30/24 16:54 36.8 C 20 149/75 H 97 Room Air O2 Flow Rate 07/01/24 09:30 2 07/01/24 09:20 5 07/01/24 09:18 5 07/01/24 06:51 06/30/24 21:07 06/30/24 16:54 Pain Intensity Left Hip: Pain Intensity: 10 Transfer of Care Handoff Completed per policy Notes Mental Status: alert / awake / arousable and participated in evaluation Patient Amnestic to Procedure: Yes Nausea / Vomiting: adequately controlled Pain: adequately controlled Airway Patency, RR, SpO2: stable & adequate BP & HR: stable & adequate Hydration State: stable & adequate Anesthetic Complications: no major complications apparent and Pt Satisfied with anesthetic care
[2024-07-01] MEDS ORDERED: HYDROmorphone INJ 1 MG/ML SYRINGE IV PRN (09:47)
[2024-07-01] MEDS ORDERED: ePHEDrine sulfate 50 MG/ML AMP IV PRN (09:47)
[2024-07-01] MEDS ORDERED: fentaNYL citrate PF 100 MCG/2 ML VIAL IV PRN (09:47)
[2024-07-01] MEDS ORDERED: ATROPINE SULFATE 0.1 MG/ML 10ML SYR IV PRN (09:47)
[2024-07-01] MEDS: ONDANSETRON INJ 2 MG/ML 2 ML VIAL IV PRN (09:48)
--- OUTSIDE RECORDS SUMMARY | 2024-07-01 09:51 | External Medical Summary | Summary of Care ---
Author Name Unknown Organization [facility] Address [address] [place] [address] Phone [phone] Care Team Providers Care Cell Efficiency Supervisor Name Role Phone Unavailable Primary Care Provider Unavailabl e Reason for Visit * Reason Comments Joint Pain Left jaw * Auth/Cert Specialty Diagnoses / Procedures Referred By Contac t Referred To Contact [facility] [address] [place] [address] Phone: [phone] Emergency Medicine [facility] [address] [place] [address] Referral ID Status Reason Start Date Expiration Date Visits Re quested Visits Authorized [id number] Encounter Details Date Type Department Care Team (Late st Contact Info) Description 04/03/2024 11:13 AM EDT - 04/03/2024 12:50 PM EDT Emergency [facility]) Emergency Department ([facility]) [address], [place] [id number] Tony Henning MD [address], [place] [id number] Trigeminal neuralgia (Primary Dx) Discharge Disposition: Home - Self Care Allergies No known active allergiesdocumented as of this encounter (statuses as of 04/04/2024) Medications Medication Sig Dispensed Refills Start Date End Date Status carBAMazepine ER 100 MG Oral Tablet Extended Release 12 Hour (TEGretol-XR) Take by mouth 1 Tablet in the morning AND 1 Tablet before bedtime. 28 Tablet 06/15/2022 Active predniSONE 50 MG Oral Tablet (Deltasone) Take 1 Tablet by mouth in the morning for 5 days. 5 Tablet 04/03/2024 04/08/2024 Active Gabapentin 300 MG Oral Capsule (Neurontin) Take 1 Capsule by mouth daily as needed for Pain. As needed for jaw pain 30 Capsule 04/03/2024 05/03/2024 Active documented as of this encounter (statuses as of 04/04/2024) Active Problems Problem Noted Date Diagnosed Date Bilateral temporomandibular joint pain 9 Smoker 11/05/2018 documented as of this encounter (statuses as of 04/04/2024) Immunizations No known immunizationsdocumented as of this encounter Social History Tobacco Use Types Packs/Day Years Used Date Smoking Tobacco: Some Days Cigarettes 0.3 10 Smokeless Tobacco: Never Alcohol Use Standard Drinks/Week Comments No 0 (1 standard drink = 0.6 oz pur e alcohol) PHQ-2 Answer Date Recorded PHQ-2 Score 0 11/05/2018 Utilities Answer Date Recorded Do you have trouble paying y our heating, water, or electric bill? (Adult - for ages 18 years and over) Not on file 02/24/2024 Is your family able to pay t he heat, water, or electric bill? (Household - for ages 0-17 years) Not on file 02/24/2024 Does your family have access to good internet? (Household - for ages 0-17 years) Not on file 02/24/2024 Social Connections Answer Date Recorded How often do you feel lonely or isolated from those around you? (Adult - for ages 18 years and over) Not on file 02/24/2024 Sex and Gender Information Value Date Recorded Sex Assigned at Not on file Gender Identity Not on file Sexual Orientation Not on file Job Start Date Occupation Industry Not on file Not on file Not on file documented as of this encounter Last Filed Vital Signs Vital Sign Reading Time Taken Comments Blood Pressure 129/70 04/03/2024 12:43 PM EDT Pulse 74 04/03/2024 12:43 PM EDT Temperature 36.4 C (97.5 F) 04/03/2024 12:43 PM E DT Respiratory Rate 14 04/03/2024 12:43 PM EDT Oxygen Saturation 100% 04/03/2024 12:43 PM EDT Inhaled Oxygen Concentration - - Weight 36.4 kg (80 lb 4 oz) 04/03/2024 11:10 AM EDT Height - - Body Mass Index 14.68 06/15/2022 1:43 PM EDT documented in this encounter Discharge Instructions * Discharge Instructions* Yung Maradiaga DO - 04/03/2024 12:17 PM EDT You were seen in the emergency department for left jaw pain, likely related to trigeminal neuralgia. You were given steroids and a nerve medication, prednisone and gabapentin with improvement in his symptoms. We sent a prescription to her outpatient pharmacy for you to continue prednisone daily forthe next 5 days. Gabapentin 300 mg were sent to your pharmacy for you to take as needed for any continued pain. Please follow up with your primary care physician to discuss today's visit and for medication refills. documented in this encounter Plan of Treatment Health Maintenance Due Date Last Done Comments DXA Scan 1950 Pneumococcal Vaccine: 65+ Ye ars (1 of 2 - PCV) 1955 DTaP,Tdap,and Td Vaccines (1 - Tdap) 1968 Zoster Vaccines (1 of 2) 1999 Depression Screening 11/05/2019 11/05/2018 COVID-19 Vaccine (1 - 2022-2 4 season) 2023 Influenza Vaccine (FLU shot) (#1) 2024 HPV (Gardasil) Vaccine Aged Out No lo nger eligible based on patient's age to complete this topic Hepatitis B Vaccine Aged Out No longe r eligible based on patient's age to complete this topic MENINGOCOCCAL (MENACTRA/MENVEO) Aged Out No longer eligible based on patient's age to complete this topic documented as of this encounter Medical Devices Not on filedocumented as of this encounter Visit Diagnoses Diagnosis Trigeminal neuralgia- Primary documented in this encounter Administered Medications Inactive Administered Medications - up to 3 most recent administrations Medication Order MAR Action Action Date Dose Rate Site Gabapentin (Neurontin) cap 300 mg 300 mg, Oral, ONCE, On 04/03/24 at 1200, For 1 dose Given 04/03/2024 11:39 AM EDT 300 mg predniSONE (Deltasone) tab 50 mg 50 mg, Oral, ONCE, On 04/03/24 at 1200, For 1 dose Given 04/03/2024 11:39 AM EDT 50 mg documented in this encounter Active and Recently Administered Medications Times are shown in EDT. Scheduled Medication Order 04/01/2024 04/02/2024 04/03/2024 Gabapentin (Neurontin) cap 300 mg (COMPLETED) 300 mg, Oral, ONCE, On 04/03/24 at 1200, For 1 dose 1139 (Given - Provid er: Mychal Sousa RN) predniSONE (Deltasone) tab 50 mg (COMPLETED) 50 mg, Oral, ONCE, On 04/03/24 at 1200, For 1 dose 1139 (Given - Provid er: Mychal Sousa RN) documented in this encounter
[2024-07-01] MEDS: ACETAMINOPHEN 500 MG TAB PO SCH (10:40)
--- NOTE | 2024-07-01 17:25 | Hospitalist Progress Note ---
Date of Service July 01, 2024 Assessment & Plan (1) Closed left hip fracture: Plan: Direct transfer from [facility] due to Age-related osteoporosis with current pathologic fracture, left femur - Patient experienced a mechanical fall. No syncope or weakness that led to her fall -Urology consulted to place Cesar catheter on admission > Maintain Cesar catheter for at least 72 hours from insertion due to dilation for urethral stenosis > Patient did receive Keflex x 1 after urologic procedure > Urology sent message to outpatient office for outpatient follow-up at urology clinic - ORIF left hip with Dr. Aguilar on 07/01/2024 > Review of operative report notes EBL 10 cc, no complications noted > Per Ortho, nonweightbearing left lower extremity, bedrest 07/01 > Aspirin 81 mg BID to start 07/02 - Tylenol and morphine for pain control - Zofran for nausea - Suspect leukocytosis is reactive. No infectious signs or symptoms - PT/OT evals ordered, pending (2) Hyperlipidemia: Plan: Statin intolerant (3) TMJ arthropathy: Plan: No current symptoms Plan Updated daughter at bedside DVT prophylaxis: SCDs CODE STATUS: Full code Admission and Anticipated Discharge Date Admission Date: June 30, 2024 Supervising Physician Co-Signing Physician Notes Attending Attestation - Chart reviewed in detail, care plan d/w SHYANNE Poole. I agree w/ the roman components of her documentation. Will need to check 25-OH vit D level while here. In light of malnourishment would benefit from nutrition consult, MVI supplementation, etc. Dev Rivera MD Subjective Patient seen and evaluated at bedside postop with daughter present. She reports some nausea, but notes that this is already improving after receiving Zofran in the PACU. She states her pain is well-controlled. She denies any paresthesias in her lower extremities. Denies shortness of breath or chest pain. No additional complaints or concerns at this time. Physical Exam Physical Exam: General: No acute distress, nondiaphoretic, Underweight with BMI 14.3 Skin: The skin was warm, dry. No edema noted. Abrasion on left elbow. Cardiac: Regular rate and rhythm without murmurs gallops or rubs. Pulm: Clear to auscultation bilaterally without wheezes, rales or rhonchi. No re tractions or accessory muscle use. Abdominal: Soft, nontender, nondistended. Neuro: A&O x3. No focal neurological deficits. Extremities: Sensation to soft touch intact bilaterally. Dorsiflexion and plantarflexion intact bilaterally. Cap refill <3 seconds. Dressing to left hip clean, dry, intact. Results & Data Results & Data Vital Signs (Past 12 Hours) Vital Signs Temp Pulse Pulse Resp BP Pulse Ox O2 Del Method 07/01/24 17:00 97.7 F 85 16 147/100 H 96 Room Air 07/01/24 13:20 97.9 F 87 16 162/92 H 98 Room Air 07/01/24 12:16 97.7 F 80 16 150/88 H 98 Room Air 07/01/24 11:14 97.5 F L 79 16 165/95 H 100 Room Air 07/01/24 10:43 97.5 F L 76 17 176/96 H 100 Room Air 07/01/24 10:00 74 16 179/94 H 99 Room Air 07/01/24 09:50 76 19 168/99 H 100 Room Air 07/01/24 09:40 97.5 F L 74 16 173/86 H 100 Room Air 07/01/24 09:30 75 16 187/97 H 100 Oxymask 07/01/24 09:20 74 17 180/94 H 100 Oxymask 07/01/24 09:18 97.3 F L 71 22 169/93 H 100 Oxymask 07/01/24 06:51 98.6 F 87 16 178/89 H 99 Room Air O2 Flow Rate 07/01/24 17:00 07/01/24 13:20 07/01/24 12:16 07/01/24 11:14 07/01/24 10:43 07/01/24 10:00 07/01/24 09:50 07/01/24 09:40 07/01/24 09:30 2 07/01/24 09:20 5 07/01/24 09:18 5 07/01/24 06:51 Laboratory Results Reviewed CBC Reviewed coags Reviewed CMP PG Care Time/CCT Total # of Minutes Spent Total Time Spent with Patient: Total time spent is greater than 50% in coordination of care (as documented) at patient's floor/unit and/or counseling patient: Coding Level of Care Code 33038 SUB INP/OBS CARE 2/35MIN Diagnoses Closed left hip fracture S72.002A Hyperlipidemia E78.5 TMJ arthropathy M26.659
[2024-07-02 06:25] LABS: Basophils # (auto) 0.03 K/uL (0.00-0.20); Basophils % (auto) 0.3 %; Eosinophils # (auto) 0.08 K/uL (0.00-0.50); Eosinophils % (auto) 0.7 %; Hematocrit (blood only) 38.8 % (37.0-47.0); Hemoglobin 13.2 g/dl (12.0-16.0); Immature Granulocytes # (auto) 0.05 K/uL (0.01-0.20); Immature Granulocytes % (auto) 0.4 %; Lymphocytes # (auto) 1.77 K/uL (1.20-3.40); Lymphocytes % (auto) 14.8 %; Mean Corpuscular Volume 88.2 fL (80.0-100.0); Mean Platelet Volume 10.8 fL (9.4-12.4); Monocytes # (auto) 0.98 K/uL (0.11-0.59); Monocytes % (auto) 8.2 %; Neutrophils # (auto) 9.01 K/uL (1.40-6.50); Neutrophils % (auto) 75.6 %; Platelet Count 316 K/uL (130-400); RDW Coefficient of Variation 13.1 % (11.5-14.5); RDW Standard Deviation 42.8 fL (36.4-46.3); White Blood Count 11.92 K/ul (4.8-10.8)
[2024-07-02 06:42] LABS: BUN Creatinine Ratio 29.9 (10-20); Calcium 9.2 mg/dl (8.6-10.3); Creatinine Clr Calc Pharmacy 40.7 ml/min; Potassium 4.4 mmol/L (3.5-5.1)
[2024-07-02] MEDS: ROSUVASTATIN CALCIUM 10 MG TAB PO SCH (07:28)
[2024-07-02] MEDS: ASPIRIN 81 MG ECTAB PO SCH (07:28)
--- NOTE | 2024-07-02 09:45 | Orthopedic Progress Note ---
Date of Service July 02, 2024 Assessment & Plan (1) S/p left hip fracture: Plan: PT/OT Weightbearing as tolerated with walker assistance Dressing was clean dry and intact and left in place DVT prophylaxis With aspirin and AJAY stockings Pain controlled p.o. medication Ice with easy wrap Patient will most likely need to go to either rehab or senior care facility upon discharge Patient will need a 2-week follow-up in our clinic With questions contact our clinic at [phone] Admission and Anticipated Discharge Date Admission Date: June 30, 2024 Subjective This 74-year-old female is day 1 status post left hip fracture open reduction internal fixation with Dr. Aguilar. She is doing very well this morning. She states that her pain is well-controlled with p.o. pain medication she was given. She states she is still unable to lift her leg or bend in her knee. She states that physical therapy has been in and is working on passive range of motion. Currently she denies chest pain, shortness of breath, fever, chills, sweats, nausea, vomiting, diarrhea, numbness and tingling in her left lower extremity. Review of Systems Review of Systems: All systems reviewed & are unremarkable except as noted in Subjective Physical Exam Physical Exam: Left lower extremity: Dressing over the lateral aspect of her left hip is clean dry and intact and left in place. She is able to actively dorsi and plantarflex her foot and detect light sensation to touch over the pads of all digits. She is unable to perform an active straight leg raise test. She is unable to actively flex at her knee but tolerates passive knee flexion to about 60 degrees. Logroll testing causes no discomfort. She has no tenderness to palpation in the groin area. She does tolerate light passive straight leg raise testing. Results & Data Vital Signs (Past 12 Hours) Vital Signs Temp Pulse Pulse Resp BP Pulse Ox O2 Del Method 07/02/24 07:00 36.7 C 82 16 123/78 96 Room Air 07/02/24 03:20 36.8 C 86 15 130/81 96 Room Air 07/01/24 23:04 36.8 C 84 16 133/77 96 Room Air Diagnostic Findings Laboratory Results WBC 11.92 K/ul (4.8-10.8) H 07/02/24 05:32 RBC 4.40 M/uL (4.20-5.40) 07/02/24 05:32 Hgb 13.2 g/dl (12.0-16.0) 07/02/24 05:32 Hct 38.8 % (37.0-47.0) 07/02/24 05:32 MCV 88.2 fL (80.0-100.0) 07/02/24 05:32 MCH 30.0 pg (25.0-34.0) 07/02/24 05:32 MCHC 34.0 g/dL (32.0-36.0) 07/02/24 05:32 RDW Std Deviation 42.8 fL (36.4-46.3) 07/02/24 05:32 RDW Coeff of Horacio 13.1 % (11.5-14.5) 07/02/24 05:32 Plt Count 316 K/uL (130-400) 07/02/24 05:32 MPV 10.8 fL (9.4-12.4) 07/02/24 05:32 Immature Gran % (Auto) 0.4 % 07/02/24 05:32 Neut % (Auto) 75.6 % 07/02/24 05:32 Lymph % (Auto) 14.8 % 07/02/24 05:32 [place] % (Auto) 8.2 % 07/02/24 05:32 Eos % (Auto) 0.7 % 07/02/24 05:32 Baso % (Auto) 0.3 % 07/02/24 05:32 Neut # (Auto) 9.01 K/uL (1.40-6.50) H 07/02/24 05:32 Lymph # (Auto) 1.77 K/uL (1.20-3.40) 07/02/24 05:32 [place] # (Auto) 0.98 K/uL (0.11-0.59) H 07/02/24 05:32 Eos # (Auto) 0.08 K/uL (0.00-0.50) 07/02/24 05:32 Baso # (Auto) 0.03 K/uL (0.00-0.20) 07/02/24 05:32 Immature Gran # (Auto) 0.05 K/uL (0.01-0.20) 07/02/24 05:32 PT 10.4 Seconds (9.0-12.0) 07/01/24 06:00 INR 1.0 (0.9-1.1) 07/01/24 06:00 APTT 25 Seconds (21-31) 06/30/24 18:32 PTT Ratio 0.9 06/30/24 18:32 Sodium 138 mmol/L (136-145) 07/02/24 05:32 Potassium 4.4 mmol/L (3.5-5.1) 07/02/24 05:32 Chloride 103 mmol/L (98-107) 07/02/24 05:32 Carbon Dioxide 29 mmol/L (21-32) 07/02/24 05:32 Anion Gap 6 (3-11) 07/02/24 05:32 BUN 20 mg/dl (6-23) 07/02/24 05:32 Creatinine 0.67 mg/dl (0.6-1.2) 07/02/24 05:32 Est Cr Clr Drug Dosing 40.7 ml/min 07/02/24 05:32 eGFR 91.09 07/02/24 05:32 BUN/Creatinine Ratio 29.9 (10-20) H 07/02/24 05:32 Glucose 84 mg/dl (70-99(Fasting)) 07/02/24 05:32 Calcium 9.2 mg/dl (8.6-10.3) 07/02/24 05:32 Magnesium 2.0 mg/dl (1.7-2.4) 07/01/24 06:00 Total Bilirubin 0.3 mg/dl (0.2-1.0) 06/30/24 18:32 AST 23 U/L (13-39) 06/30/24 18:32 ALT 17 U/L (7-52) 06/30/24 18:32 Alkaline Phosphatase 99 U/L (34-104) 06/30/24 18:32 Total Protein 6.9 gm/dl (6.0-8.3) 06/30/24 18:32 Albumin 4.0 gm/dl (3.4-5.0) 06/30/24 18:32 Globulin 2.9 gm/dl (2.5-4.0) 06/30/24 18:32 Albumin/Globulin Ratio 1.4 (0.9-2) 06/30/24 18:32 Impressions Hip X-Ray 07/01/24 07:18 FL hip LT 2-3V CLINICAL HISTORY: LT TROCHNAILacute fracture COMPARISON STUDY: 06/30/2020 FLUOROSCOPY TIME: 42.7 seconds FLUOROSCOPY IMAGES: 2 EXPOSURE DOSE: 4.79 mGy FINDINGS: Status post placement of a femoral neck dynamic screw fixating the acute left femoral fracture. Satisfactory alignment. No dislocation. IMPRESSION: Fluoroscopic assistance as above. ACT 112: Negative or not required by law. Electronically signed by: Rashid Tadeo M.D. 07/01/2024 9:07 AM
[2024-07-02] MEDS: CHOLECALCIFEROL 25 MCG (1000 UNITS) TAB PO SCH (13:34)
[2024-07-02] MEDS ORDERED: oxyBUTYnin chloride 5 MG TAB PO PRN (16:50)
--- NOTE | 2024-07-02 17:57 | Hospitalist Progress Note ---
Date of Service July 02, 2024 Assessment & Plan (1) Closed left hip fracture: Plan: Direct transfer from [facility] due to Age-related osteoporosis with current pathologic fracture, left femur - Patient experienced a mechanical fall. No syncope or weakness that led to her fall -Urology consulted to place Cesar catheter on admission > Maintain Cesar catheter for at least 72 hours from insertion due to dilation for urethral stenosis > Patient did receive Keflex x 1 after urologic procedure > Urology sent message to outpatient office for outpatient follow-up at urology clinic > Oxybutynin 5 mg PRN for spasms - ORIF left hip with Dr. Aguilar on 07/01/2024 > Review of operative report notes EBL 10 cc, no complications noted > Per Ortho, WBAT with walker assistance > Aspirin 81 mg BID and TEDs for VTE PPx - Vit D level insufficient at 21.9 > Started Vit D3 supplement 25 mcg daily > Recommend rechecking Vit D level in 3 months - Tylenol and morphine for pain control. Has not required any morphine postop - Zofran for nausea - Suspect leukocytosis is reactive. 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 I agree w/ the roman components of her documentation. Appreciate orthopedic assistance for fracture management. Replace low vitamin D. Dispo planning. Dev Rivera MD Subjective Patient seen and evaluated at bedside with her daughter present. She reports no pain at rest and moderate pain with activity. She reports that the pain is well-controlled with Tylenol alone. She has been passing gas and had a bowel movement this morning. She worked with PT earlier, who is currently recommen ding acute rehab. Patient is hopeful for enough improvement with her therapy status over the weekend that she will be able to be discharged home. She denies any paresthesias in her lower extremities, nausea or vomiting, lightheadedness or dizziness, shortness of breath or chest pain. No additional complaints or concerns at this time. Physical Exam Physical Exam: General: No acute distress, nondiaphoretic, severe malnutrition, Underweight with BMI 14.3 Skin: The skin was warm, dry. No edema noted. Abrasion on left elbow. Cardiac: Regular rate and rhythm without murmurs gallops or rubs. Pulm: Clear to auscultation bilaterally without wheezes, rales or rhonchi. No respiratory distress. 95% on room air. Abdominal: Soft, nontender, nondistended. Bowel sounds present. Neuro: A&O x3. No focal neurological deficits. Extremities: Sensation to soft touch intact bilaterally. Dorsiflexion and plantarflexion intact bilaterally. Cap refill <3 seconds. Dressing to left hip clean, dry, intact. Unable perform straight leg raise on left side. Results & Data Results & Data Vital Signs (Past 12 Hours) Vital Signs Temp Pulse Resp BP Pulse Ox O2 Del Method 07/02/24 14:00 97.9 F 87 16 132/76 95 Room Air 07/02/24 07:00 98.1 F 82 16 123/78 96 Room Air Laboratory Results Reviewed CBC Reviewed BMP PG Care Time/CCT Total # of Minutes Spent Total Time Spent with Patient: Total time spent is greater than 50% in coordination of care (as documented) at patient's floor/unit and/or counseling patient: Coding Level of Care Code 96387 SUB INP/OBS CARE 3/50MIN Diagnoses Closed left hip fracture S72.002A Hyperlipidemia E78.5 TMJ arthropathy M26.659
--- NOTE | 2024-07-03 00:57 | Electrocardiogram Report ---
Test Reason : Blood Pressure : */* mmHG Vent. Rate : 85 BPM Atrial Rate : 85 BPM P-R Int : 98 ms QRS Dur : 82 ms QT Int : 374 ms P-R-T Axes : 73 -55 61 degrees QTcB Int : 445 ms Sinus rhythm with short MS Left axis deviation Abnormal ECG When compared with ECG of 01-Jun-2023 12:53, Criteria for Septal infarct are no longer Present Nonspecific T wave abnormality no longer evident in Anterior leads Confirmed by Nico Smith ([id number]) on 07/03/2024 12:57:23 AM Referred By: NO PCP Confirmed By: Nico Smith
[2024-07-03 06:25] LABS: Basophils # (auto) 0.03 K/uL (0.00-0.20); Basophils % (auto) 0.3 %; Hematocrit (blood only) 40.5 % (37.0-47.0); Hemoglobin 13.7 g/dl (12.0-16.0); Immature Granulocytes # (auto) 0.02 K/uL (0.01-0.20); Immature Granulocytes % (auto) 0.2 %; Lymphocytes # (auto) 1.65 K/uL (1.20-3.40); Lymphocytes % (auto) 16.7 %; Mean Corpuscular Hemoglobin 30.2 pg (25.0-34.0); Mean Corpuscular Hgb Conc 33.8 g/dL (32.0-36.0); Mean Corpuscular Volume 89.4 fL (80.0-100.0); Mean Platelet Volume 10.5 fL (9.4-12.4); Monocytes # (auto) 0.82 K/uL (0.11-0.59); Monocytes % (auto) 8.3 %; Neutrophils # (auto) 7.17 K/uL (1.40-6.50); Neutrophils % (auto) 72.5 %; Platelet Count 297 K/uL (130-400); RDW Coefficient of Variation 13.3 % (11.5-14.5); RDW Standard Deviation 43.5 fL (36.4-46.3); Red Blood Count 4.53 M/uL (4.20-5.40); White Blood Count 9.89 K/ul (4.8-10.8)
[2024-07-03 06:33] LABS: BUN Creatinine Ratio 44.6 (10-20); Calcium 9.2 mg/dl (8.6-10.3); Creatinine Clr Calc Pharmacy 48.6 ml/min; Potassium 4.1 mmol/L (3.5-5.1)
[2024-07-03 07:28] VITALS: RESP 18
--- NOTE | 2024-07-03 08:31 | Orthopedic Progress Note ---
Date of Service July 03, 2024 Assessment & Plan (1) S/p left hip fracture: Plan: POD #2 s/p ORIF left femoral neck fracture, doing as well as expected. PT/OT Weightbearing as tolerated with walker assistance Dressing changed. Keep covered while in facility. May shower and replace as needed. DVT prophylaxis 81mg aspirin BID x 6 weeks and AJAY stockings x 3 weeks, SCDs while in hospital Pain controlled p.o. medication Ice with easy wrap D/C planning Continue care per primary service. Patient will need a 2-week follow-up in our clinic With questions contact our clinic at [phone] Admission and Anticipated Discharge Date Admission Date: June 30, 2024 Physical Exam Physical Exam: LLE: Neurovascularly intact. Calf soft & non-tender. Actively moving her hip on her own. Incision is clean, dry, intact. - log roll. Results & Data Vital Signs (Past 12 Hours) Vital Signs Temp Pulse Resp BP Pulse Ox O2 Del Method 07/03/24 07:28 36.6 C 92 H 18 107/72 94 Room Air Laboratory Results 07/03/24 07/02/24 Range/Units 05:47 10:08 WBC 9.89 (4.8-10.8) K/ul RBC 4.53 (4.20-5.40) M/uL Hgb 13.7 (12.0-16.0) g/dl Hct 40.5 (37.0-47.0) % MCV 89.4 (80.0-100.0) fL MCH 30.2 (25.0-34.0) pg MCHC 33.8 (32.0-36.0) g/dL RDW Std Deviation 43.5 (36.4-46.3) fL RDW Coeff of Horacio 13.3 (11.5-14.5) % Plt Count 297 (130-400) K/uL MPV 10.5 (9.4-12.4) fL Immature Gran % (Auto) 0.2 % Neut % (Auto) 72.5 % Lymph % (Auto) 16.7 % [place] % (Auto) 8.3 % Eos % (Auto) 2.0 % Baso % (Auto) 0.3 % Neut # (Auto) 7.17 H (1.40-6.50) K/uL Lymph # (Auto) 1.65 (1.20-3.40) K/uL [place] # (Auto) 0.82 H (0.11-0.59) K/uL Eos # (Auto) 0.20 (0.00-0.50) K/uL Baso # (Auto) 0.03 (0.00-0.20) K/uL Immature Gran # (Auto) 0.02 (0.01-0.20) K/uL Sodium 137 (136-145) mmol/L Potassium 4.1 (3.5-5.1) mmol/L Chloride 103 (98-107) mmol/L Carbon Dioxide 25 (21-32) mmol/L Anion Gap 9 (3-11) BUN 25 H (6-23) mg/dl Creatinine 0.56 L (0.6-1.2) mg/dl Est Cr Clr Drug Dosing 48.6 ml/min eGFR 95.12 BUN/Creatinine Ratio 44.6 H (10-20) Glucose 96 (70-99(Fasting)) mg/dl Calcium 9.2 (8.6-10.3) mg/dl 25-OH Vitamin D Total 21.9 L (30-100) ng/ml
--- NOTE | 2024-07-03 10:27 | Hospitalist Progress Note ---
Date of Service July 03, 2024 Assessment & Plan (1) Closed left hip fracture: Plan: Direct transfer from [facility] due to Age-related osteoporosis with current pathologic fracture, left femur - Patient experienced a mechanical fall. No syncope or weakness that led to her fall -Urology consulted to place Cesar catheter on admission > Maintain Cesar catheter for at least 72 hours from insertion due to dilation for urethral stenosis > Patient did receive Keflex x 1 after urologic procedure > Urology sent message to outpatient office for outpatient follow-up at urology clinic > Oxybutynin 5 mg PRN for spasms - ORIF left hip with Dr. Aguilar on 07/01/2024 > Review of operative report notes EBL 10 cc, no complications noted > Per Ortho, WBAT with walker assistance > Aspirin 81 mg BID and TEDs for VTE PPx - Vit D level insufficient at 21.9 > Continue Vit D3 supplement 25 mcg daily > Recommend rechecking Vit D level in 3 months - Tylenol and morphine for pain control. Has not required any morphine postop - Zofran for nausea - Leukocytosis resolved, suspect it was reactive. 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 I agree w/ the roman components of her documentation. Appreciate orthopedic assistance for fracture management. Dispo - home with home PT/OT? Will see how weekend goes. Cesar - d/c tomorrow. Dev Rivera MD Subjective Patient seen and evaluated at bedside. She reports some nausea, which she suspects is due to here statin. She reports that she was started on this in January 2024 by her PCP, but this was quickly discontinued due to intolerance. Will discontinue her rosuvastatin now. Otherwise, she reports feeling well. She continues to do her therapy exercises independently while in bed. She notes that her pain is well-controlled. She had some leaking around her Cesar catheter yesterday. Urology felt this was due to spasms around the catheter site and PRN oxybutynin was ordered at that time. Her Cesar was flushed and there have been no further problems since then. Patient denies any spasms or discomfort at this time. Will maintain Cesar u ntil at least tomorrow per urology's recommendation. No additional complaints or concerns at this time. Physical Exam Physical Exam: General: No acute distress, nondiaphoretic, severe malnutrition, Underweight with BMI 14.3 Skin: The skin was warm, dry. No edema noted. Abrasion on left elbow. Cardiac: Regular rate and rhythm without murmurs gallops or rubs. Pulm: Clear to auscultation bilaterally without wheezes, rales or rhonchi. No respiratory distress. 94% on room air. Abdominal: Soft, nontender, nondistended. Bowel sounds present. Neuro: A&O x3. No focal neurological deficits. Extremities: Sensation to soft touch intact bilaterally. Dorsiflexion and pl antarflexion intact bilaterally. Cap refill <3 seconds. Dressing to left hip clean, dry, intact. Unable perform straight leg raise on left side. Limited flexion of left knee. Results & Data Results & Data Vital Signs (Past 12 Hours) Vital Signs Temp Pulse Resp BP Pulse Ox O2 Del Method 07/03/24 07:28 97.9 F 92 H 18 107/72 94 Room Air Laboratory Results Reviewed CBC Reviewed BMP PG Care Time/CCT Total # of Minutes Spent Total Time Spent with Patient: Total time spent is greater than 50% in coordination of care (as documented) at patient's floor/unit and/or counseling patient: Coding Level of Care Code 16444 SUB INP/OBS CARE 2/35MIN Diagnoses Closed left hip fracture S72.002A Hyperlipidemia E78.5 TMJ arthropathy M26.659
--- NOTE | 2024-07-04 09:47 | Hospitalist Progress Note ---
Date of Service July 04, 2024 Assessment & Plan (1) Closed left hip fracture: Plan: Direct transfer from [facility] due to Age-related osteoporosis with current pathologic fracture, left femur - Patient experienced a mechanical fall. No syncope or weakness that led to her fall -Urology consulted to place Cesar catheter on admission > Cesar catheter inserted 06/30, maintained for 72 hours due to dilation for urethral stenosis, removed 07/04 > Patient did receive Keflex x 1 after urologic procedure > Urology sent message to outpatient office for outpatient follow-up at urology clinic > Oxybutynin 5 mg PRN for spasms - ORIF left hip with Dr. Aguilar on 07/01/2024 > Review of operative report notes EBL 10 cc, no complications noted > Per Ortho, WBAT with walker assistance > DVT prophylaxis 81mg aspirin BID x 6 weeks and AJAY stockings x 3 weeks, SCDs while in hospital - Vit D level insufficient at 21.9 > Continue Vit D3 supplement 25 mcg daily > Recommend rechecking Vit D level in 3 months - Tylenol and morphine for pain control. 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 I agree w/ the roman components of her documentation. Appreciate orthopedic assistance. Dispo - hopefully inpatient rehab. Dev Rivera MD Subjective Patient seen and evaluated at bedside. She had just finished working with PT. She reports her pain is well-controlled. We discussed PT's recommendations of discharging to acute rehab. Today, she states that she does not want this "because insurance won't cover it." Previously, she stated that she was not interested in acute rehab and only was interested in home health PT services. Informed patient I will ask case management to speak with her about her options. She does note that she has multiple family members who live close by and can help her at home, but they have a busy upcoming few weeks. She denies any acute complaints. We discussed that she will have her Cesar catheter removed today. Physical Exam Physical Exam: General: No acute distress, nondiaphoretic, severe malnutrition, Underweight with BMI 14.3 Skin: The skin was warm, dry. No edema noted. Abrasion on left elbow. Cardiac: Regular rate and rhythm without murmurs gallops or rubs. Pulm: Clear to auscultation bilaterally without wheezes, rales or rhonchi. No respiratory distress. 98% on room air. Abdominal: Soft, nontender, nondistended. Bowel sounds present. Neuro: A&O x3. No focal neurological deficits. Extremities: Sensation to soft touch intact bilaterally. Dorsiflexion and plantarflexion intact bilaterally. Cap refill <3 seconds. Dressing to left hip clean, dry, intact. Unable perform straight leg raise on left side. Limited flexion of left knee. Results & Data Results & Data Vital Signs (Past 12 Hours) Vital Signs Temp Pulse Resp BP Pulse Ox O2 Del Method 07/04/24 08:25 97.9 F 82 18 115/75 98 Room Air PG Care Time/CCT Total # of Minutes Spent Total Time Spent with Patient: Total time spent is greater than 50% in coordination of care (as documented) at patient's floor/unit and/or counseling patient: Coding Level of Care Code 65692 SUB INP/OBS CARE 3/50MIN Diagnoses Closed left hip fracture S72.002A Hyperlipidemia E78.5 TMJ arthropathy M26.659
--- NOTE | 2024-07-04 09:50 | Orthopedic Progress Note ---
Date of Service July 04, 2024 Assessment & Plan (1) S/p left hip fracture: Plan: POD #3 s/p ORIF left femoral neck fracture, doing as well as expected. PT/OT Weightbearing as tolerated with walker assistance Dressing changed. Keep covered while in facility. May shower and replace as needed. DVT prophylaxis 81mg aspirin BID x 6 weeks and AJAY stockings x 3 weeks, SCDs while in hospital Pain controlled p.o. medication Ice with easy wrap D/C planning Continue care per primary service. Follow-up as scheduled. With questions contact our clinic at [phone] Admission and Anticipated Discharge Date Admission Date: June 30, 2024 Subjective Patient is resting in bed. Doing well today. States that she does feel that she overdid it yesterday. She has been out of bed ambulating in her room. She been doing her bedside exercises. She continues to have a Cesar in place. She states she was told that it staying in another day. Mild pain of left hip with movement. No pain at rest. States that she is a little frustrated that she [facility]. She thinks that she may be discharged to home tomorrow. She will need a walker and potentially a wheelchair as well as in-home physical therapy and nursing. Physical Exam Musculoskeletal: Exam of her left hip: Postoperative dressings are clean, dry and intact. They were changed yesterday by Dr. Aguilar. No significant edema of her left leg. Tolerates logrolling of her hip. Tolerates passive range of motion of her left knee. Full ankle range of motion and normal strength. Dorsalis pedis and posterior tibial pulses 1+. Distal sensation is normal. Calf is supple and nontender. Results & Data Vital Signs (Past 12 Hours) Vital Signs Temp Pulse Resp BP Pulse Ox O2 Del Method 07/04/24 08:25 36.6 C 82 18 115/75 98 Room Air
--- NOTE | 2024-07-05 10:02 | Orthopedic Progress Note ---
Date of Service July 05, 2024 Assessment & Plan (1) S/p left hip fracture: Plan: POD #4 s/p ORIF left femoral neck fracture 07/01/24, doing as well as expected. PT/OT Weightbearing as tolerated with walker assistance Dressing looked great this morning. Keep covered while in facility. May shower and replace as needed. DVT prophylaxis 81mg aspirin BID x 6 weeks and AJAY stockings x 3 weeks, SCDs while in hospital Pain controlled p.o. medication Ice with easy wrap D/C planning Continue care per primary service. Follow-up as scheduled in our office. Will sign off for now please TT with any questions or concerns. With questions contact our clinic at [phone] Admission and Anticipated Discharge Date Admission Date: June 30, 2024 Subjective Pt seen and examined bedside. She said she had a BM this morning. She is doing well. Ambulating with walker. Doing leg exercises. Has no complaints this morning. Is ready to be discharged. Physical Exam Physical Exam: General: Pt laying in hospital bed AA&O, in NAD, calm and cooperative during exam Lower Extremity: Dressing in tact and not saturated. Pt has full ROM of ankle and all 5 digits. Pt has 5/5 strength with resisted DF/PF. SLR with assistance. Calf supple and non tender. NVI with sensation to light touch distally and good distal pulses present. Lower extremity noted to have good color and temperature with no signs of vascular or lymphatic insufficiency. She is able to tolerate some light passive ROM with hip. Results & Data Vital Signs (Past 12 Hours) Vital Signs Temp Pulse Resp BP Pulse Ox O2 Del Method 07/05/24 07:34 36.6 C 87 18 134/77 96 Room Air
[2024-07-05] MEDS ORDERED: COUGH DROP (SUGAR FREE) LOZ 24 LOZ/1 BOX BUCCAL PRN (11:20)
[2024-07-05 14:07] LABS: Appearance Urine Clear (Clear); Bilirubin Urine Negative (Negative); Blood Urine Negative (Negative); Color Urine Yellow; Glucose Urine UA Negative (Negative); Ketones Urine Negative (Negative); Leukocyte Esterase Urine Negative (Negative); Nitrite Urine Negative (Negative); Protein Urine Negative (Negative); Specific Gravity Urine 1.026 (1.000-1.030); Urobilinogen Urine Negative (Negative)
[2024-07-05 14:44] VITALS: BP 121/76; PULSE 85; TEMP 98.4; O2SAT 98
--- NOTE | 2024-07-05 14:57 | Discharge Summary ---
Discharge Summary Date of Service July 05, 2024 Principal Dx & Hospital Course #1 = Principal Diagnosis (1) Closed left hip fracture: Direct transfer from [facility] due to Age-related osteoporosis with current pathologic fracture, left femur - Patient experienced a mechanical fall. No syncope or weakness that led to her fall - Urology consulted to place Cesar catheter on admission > Cesar catheter inserted 06/30, maintained for 72 hours due to dilation for urethral stenosis, removed 07/04. No problems with urination after Cesar removal. UA negative > Patient did receive Keflex x 1 after urologic procedure > Urology sent message to outpatient office for outpatient - follow-up at urology clinic > Oxybutynin 5 mg PRN for spasms - ORIF left hip with Dr. Aguilar on 07/01/2024 > Review of operative report notes EBL 10 cc, no complications noted > Per Ortho, WBAT with walker assistance > DVT prophylaxis 81mg aspirin BID x 6 weeks and AJAY stockings x 3 weeks, SCDs while in hospital - Vit D level insufficient at 21.9 > Continue Vit D3 supplement 25 mcg daily > Recommend rechecking Vit D level in 3 months - Patient only utilized Tylenol for pain control in postop setting - PT/OT recommended acute rehab -- discharged to [facility] for acute rehab 07/05 (2) Hyperlipidemia: Was prescribed low-dose rosuvastatin in January 2024, however, quickly discontinued this due to intolerance - Was receiving rosuvastatin 10 mg QAM as it was still active on med rec - Discontinued 07/03 after discussion with patient where she explained she no longer takes this due to side effects - Updated home med rec to reflect this discontinuation (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 S/p ORIF left hip 07/[address] Aguilar. Vitamin D insufficient, started on vitamin D3 supplementation 25 mcg daily. For DVT PPx, 81mg aspirin BID x 6 weeks and AJAY stockings x 3 weeks. Recommend rechecking vit D in 3 months. Discharged to [facility] for acute rehab. 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 Hospitalist service was contacted via transfer center for request of transfer to [facility] as patient follows with [facility] PCP. Per report from transferring physician patient stable for [facility], had a mechanical fall which led to her fracture, and was hemodynamically stable with last vitals 165/86/respiratory rate 14/BP 90s. No antiplatelet or anticoagulants. Patient was excepted to medical surgical level of care for transfer with orthopedics on- call for anticipated surgical repair 07/01. Alejandrina is seen at the bedside. REports her sisters brought her to lunch in [place] and the booths were on a slight elevation which she got in ok, but coming out of the [place] forgot there was a drop and she fell and hit her LEFT side. Did not hit her head. Did not lose conciousness. Was able to walk to the hospital but had continued severe pain on weight bearing and went to [facility]. Has a history of TMJ which is now doing well with no recent issues. No OMFS infectious No history of heart problems No history of lung disease No history of kidney disease Did have slightly elevated cholesterol for which she did transiently take rosuvastatin but didn't feel well on this and stopped taking. Was previously on gabapentin for her TMJ but stopped because it made her feel poorly and symptoms improved regardless No history of diabetes No chest pain or chest pressure walking around the block and going up stairs. No sweats. Medical History: Reviewed Medications: Reviewed Surgical History: Reviewed Family history: Reviewed Allergies: Reviewed Social History: Former smoker, quit in April. No ETOH use. Code Status: Full Admission Exam Per Admitting Provider General: A&Ox3. NAD. Cooperative. HEENT: Atraumatic, normocephalic. Pulm: CTAB A&P. -wheezes, -rales, -rhonchi. Symmetrical chest rise. No increased work of breathing. No respiratory distress. Cardiac: RRR, -mrg. Radial pulses intact and symmetrical. Ext: PT pulse and DP pulses intact and palpable bilaterally. Cap refill intact bilat. Sensation to soft touch intact in feet bilat. Ankle dorsi/plantarflexion intact bilat. Discharge Exam General: No acute distress, nondiaphoretic, severe malnutrition, Underweight with BMI 14.3 Skin: The skin was warm, dry. No edema noted. Abrasion on left elbow. Cardiac: Regular rate and rhythm without murmurs gallops or rubs. Pulm: Clear to auscultation bilaterally without wheezes, rales or rhonchi. No respiratory distress. 98% on room air. Abdominal: Soft, nontender, nondistended. Bowel sounds present. Neuro: A&O x3. No focal neurological deficits. Extremities: Sensation to soft touch intact bilaterally. Dorsiflexion and plantarflexion intact bilaterally. Cap refill <3 seconds. Dressing to left hip clean, dry, intact. Unable perform straight leg raise on left side. Limited flexion of left knee. Discharge Plan Discharge Items Patient Disposition: Transfer Correction Fac Reason For Visit: LEFT HIP FX Discharge Diagnosis: Left hip fracture due to mechanical fall s/p ORIF Activity: Per Instructions section Weightbearing: Full weightbearing Non-emergency contact: Surgeon Call non-emergency contact if: you have any medication questions, your pain is not controlled, your temperature is above 101, your wound has increased redness and your wound has increased drainage Follow-up/Referrals: Shelli Rawls MD [Primary Care Provider] - Fernie Armstrong PA-C [Physician Merchandising Director] - 07/14/24 9:30 am Diet: Regular Diet Texture: Easy to Chew Addtl Attending Provider Instructions: Mrs. Freitas, Myron were admitted to the hospital due to a left hip fracture after sustaining a ground-level fall. You had surgery to fix this hip fracture with Dr. Aguilar on 07/01/24 without any complications. You have recovered well so far in your postop course. You are being discharged to [facility] for acute rehab. Upon discharge from the hospital: * Continue Vitamin D supplement daily. Your Vitamin D level was checked during this hospital stay and found to be insufficient. * Use Tylenol for pain control. * Take Aspirin 81 mg twice daily x 6 weeks. This is to prevent blood clots from forming. * Wear AJAY stockings x 3 weeks. This is to prevent blood clots from forming. * Follow-up with ortho outpatient. Your appointment is scheduled for 07/14/24 at 9:30 AM. It was a pleasure taking care of you while you were in the hospital, Jennifer Poole PA-C Addtl Oriental Rug Repairer Provider Instructions: Weightbearing as tolerated with walker assistance Change dressing as needed. Keep covered while in facility. May shower with waterproof dressing in place. Daily physical therapy and occupational therapy -ROM as tolerated, advance ambulation and strength as tolerated. No hip precautions necessary. May do range of motion of knee, ankle and hip as tolerated. DVT prophylaxis 81mg aspirin BID x 6 weeks and AJAY stockings x 3 weeks, SCDs while in hospital Patient will need a 2-week follow-up in our clinic (07/14/24 at 9:30 with Nazario Armstrong PA-C) With questions contact our clinic at [phone] Pending Studies at Discharge: No Stand-Alone Forms: My [facility] Skilled Items Patient informed of condition?: Yes DNR: No Discharge Level of Care: Acute rehab Communicable Disease: No Discharge Prognosis: Stable Lines: None Urinary Catheter: No Medications and DC Order Prescriptions: New acetaminophen 325 mg Tablet 650 mg PO Q6H PRN (Reason: fever or pain) Qty: 30 0RF aspirin 81 mg Tablet,Delayed Release (Dr/Ec) 81 mg PO BID Qty: 60 0RF cholecalciferol (vitamin D3) 25 mcg (1,000 unit) Capsule 25 mcg PO QAM Qty: 30 0RF Discharge Orders: Discharge Order (Routine); Ordered 07/05/24 Ordered By: Jennifer Poole Admission Data Admit Date/Time: 06/30/24 16:43 Attending Provider: Dev Rivera Admit Provider: Marky Walls Primary Care Provider: Shelli Rawls Other Providers: Ivan Aguilar; [facility]; [place] Other Interventions: Discharge Summary Assessment (RN) Last Done: 07/05/24 11:11 Hospital Stay Data Consultations 06/30/24 17:13 Consult Orthopedic Surgery Routine Procedures Performed Operation Date: 07/01/24 07:30 Actual Procedures p Open Reduction Internal Fixation Left Hip Fracture(Left) - Ivan Aguilar MD Diagnostic Imagining Performed 07/01/24 07:18 FL hip LT 2-3V Routine Pending Results Patient Have Any Pending Studies at Discharge: No Discharge Instructions Given to Patient (Per Discharging Provider) Myron Garduno were admitted to the hospital due to a left hip fracture after sustaining a ground-level fall. You had surgery to fix this hip fracture with Dr. Aguilar on 07/01/24 without any complications. You have recovered well so far in your postop course. You are being discharged to [facility] for acute rehab. Upon discharge from the hospital: * Continue Vitamin D supplement daily. Your Vitamin D level was checked during this hospital stay and found to be insufficient. * Use Tylenol for pain control. * Take Aspirin 81 mg twice daily x 6 weeks. This is to prevent blood clots from forming. * Wear AJAY stockings x 3 weeks. This is to prevent blood clots from forming. * Follow-up with ortho outpatient. Your appointment is scheduled for 07/14/24 at 9:30 AM. It was a pleasure taking care of you while you were in the hospital, Jennifer Poole PA-C Total Time Total Time Spent Total Time Spent (In Minutes): Greater than 30 minutes spent completing this discharge process including direct patient care, medication reconciliation, documentation, review of labs and images, and coordination of care. Coding Level of Care Code 39914 INP/OBS DISCH >30 MIN Diagnoses Closed left hip fracture S72.002A Hyperlipidemia E78.5 TMJ arthropathy M26.659
== END 2024-07-05 18:50 | DRG 480 ==
LOC: SUATTDRO 16:43 → 3E 16:43